=== PATIENT | female | born 1995 | race Caucasian/White ===

== ENCOUNTER → 2019-06-07 | Outpatient (CLI) | payer OTHER ==
--- NOTE | 2019-06-07 17:46 | RAD ---
Study: PREG MORE THAN OR EQ TO 14 WKS Clinical Indication: Amniotic fluid index, estimated weight and anatomy evaluation. Size less than dates. Comparison: None. Technique: Multiple grayscale images, color Doppler, and M-mode images of the uterus are obtained. Findings: There is a single intrauterine gestation in cephalic presentation. The placenta is posterior in location without evidence of placenta previa. The amount of amniotic fluid appears appropriate. Amniotic fluid index is 15 cm. Cervical length is 4.3 cm. Biometrical data: BPD = 4.97 cm for 21 weeks 0 days. HC = 18.13 cm for 20 weeks 4 days. AC = 16.17 cm for 21 weeks 2 days. FL = 3.47 cm for 21 weeks 0 days. CI ratio = 81.8. HC/AC ratio = 1.12. FL/HC ratio = 19.1. FL/AC ratio = 21.5. Overall, the estimated sonographic gestational age is 21 weeks 0 days. The estimated gestational age by the last menstrual period is 20 weeks 0 days. Estimated weight is 396 grams. A 4 chamber heart is identified with positive cardiac activity. The estimated heart rate is 145 beats per minute. Bilateral upper and lower extremities are identified. There is a three-vessel cord with cord insertion visualized. stomach and urinary bladder are identified. Both kidneys are seen. The spine and brain are unremarkable. No gross anatomic abnormalities are identified. Impression: 1. Single live intrauterine gestation with an estimated sonographic age of 21 weeks 0 days compared to that by last menstrual period of 20 weeks 0 days. Estimated weight at 396 g. Amniotic fluid index is within normal limits. The cervix is closed and normal in length at 4.3 cm. 2. Cephalic presentation. Posterior placenta without previa. 3. No gross anatomic abnormality is identified noting that the nose and lips are not well evaluated due to positioning. Electronically signed by: LAWRENCE BALL MD (06/07/2019 5:43 PM) [facility]
== END | disposition home or self-care (01) ==
LOC: US 13:35
PROVIDERS: ATTEND Obstetrics & Gynecology
DX: O26.842 Uterine size-date discrepancy, second trimester (principal); Z3A.21 21 weeks gestation of pregnancy
CPT/HCPCS: 76805

== ENCOUNTER 2019-10-22 01:13 | Inpatient (IN) | payer OTHER ==
[~2019-10-22] VITALS: Ht 167.6 cm; Wt 65.3 kg
[2019-10-22] MEDS ORDERED: ACETAMINOPHEN 325 MG TABLET. PO PRN ×3 (01:30→12:45)
[2019-10-22] MEDS ORDERED: MAG HYDROX/ALUMINUM HYD/SIMETH 30 ML ORAL.SUSP PO PRN ×2 (01:30→12:45)
[2019-10-22] MEDS ORDERED: IV RINGERS,LACTATED 1000ML 1,000 ML IV PRN (01:30)
[2019-10-22 01:40] LABS: BILIRUBIN,URINE NEGATIVE (NEG); CLARITY,URINE CLEAR; COLOR,URINE YELLOW; NITRITE,URINE NEGATIVE (NEG); PROTEIN,URINE NEGATIVE (NEG-TRACE); UROBILINOGEN,URINE 0.2 mg/dL (0.2 mg/dL)
[2019-10-22 01:44] LABS: BACTERIA,URINE FEW /HPF (0-FEW); SQUAMOUS EPITHELIAL CELL,UR MOD /LPF
[2019-10-22 01:45] LABS: BARBITURATES NEG (NEG); BENZODIAZEPINES NEG (NEG); CANNABINOIDS NEG (NEG); COCAINE NEG (NEG); METHADONE NEG (NEG); OPIATES NEG (NEG); PHENCYCLIDINE NEG (NEG)
[2019-10-22 01:47] LABS: AMPHETAMINE/METHAMPHETAMINE NEG (NEG)
[2019-10-22] MEDS ORDERED: IV RINGERS,LACTATED 1000ML 1,000 ML IV SCH ×2 (03:51→05:47)
[2019-10-22] MEDS ORDERED: OXYTOCIN 30 UNIT/500 ML PREMIX 500 ML IV PRN ×3 (04:00→12:45)
[2019-10-22] MEDS ORDERED: TERBUTALINE 1 MG/ML VIAL. SQ PRN (04:00)
[2019-10-22] MEDS ORDERED: BUTORPHANOL 2 MG/ML VIAL. IVP PRN (04:00)
[2019-10-22] MEDS ORDERED: 0.9 % SODIUM CHLORIDE 10 ML DISP.SYRIN. IV PRN ×2 (04:00→12:45)
[2019-10-22] MEDS ORDERED: PENICILLIN G K 5,000,000 UNIT in IV DEXTROSE 5% 100ML 100 ML IV ONE (04:00)
[2019-10-22] MEDS ORDERED: LIDOCAINE 1% PF 30 ML VIAL. INJ PRN (04:00)
[2019-10-22] MEDS ORDERED: fentaNYL PF VIAL 100 MCG/2 ML VIAL IVP PRN ×3 (04:00)
[2019-10-22 04:17] LABS: BASO % 0 % (0-3); EOS % 0 % (0-3); HEMATOCRIT 31.4 % (36.0-47.0); HEMOGLOBIN 10.1 g/dL (12.0-15.5); LYMPH # 1.3 x10^3/uL (1.0-4.8); LYMPH % 9 % (24-48); MEAN CORPUSCULAR HEMOGLOBIN 25 pg (25-35); MEAN CORPUSCULAR HGB CONC 32 g/dL (31-37); MEAN CORPUSCULAR VOLUME 79 fL (79-100); MONO # 0.8 x10^3/uL (0.0-1.1); MONO % 6 % (0-9); NEUT # 12.7 x10^3/uL (1.8-7.7); NEUT % 85 % (31-73); PLATELET COUNT 259 x10^3/uL (140-400); RED BLOOD COUNT 3.99 x10^6/uL (3.50-5.40); RED CELL DISTRIBUTION WIDTH 15.8 % (11.5-14.5); WHITE BLOOD COUNT 14.8 x10^3/uL (4.0-11.0)
[2019-10-22] MEDS: ONDANSETRON PF 4 MG/2 ML VIAL. IVP PRN ×2 (04:18→10:49)
[2019-10-22 04:42] LABS: % BANDS 2 % (0-9); % LYMPHS 9 % (24-48); % MONOS 6 % (0-10); % SEGS 83 % (35-66); ANISOCYTOSIS SLIGHT; HYPOCHROMIA SLIGHT; PLT ESTIMATE ADEQUATE (ADEQUATE); TOXIC GRANULATION SLIGHT
[2019-10-22 05:33] VITALS: BP 119/80
[2019-10-22] MEDS ORDERED: BUPIVACAINE MPF 0.25% 30 ML VIAL. EPID PRN (06:00)
[2019-10-22] MEDS ORDERED: ePHEDrine PF IN SALINE 50 MG/10 ML SYRINGE. IV PRN (06:00)
[2019-10-22] MEDS ORDERED: IV RINGERS,LACTATED 500ML 500 ML IV PRN (06:00)
[2019-10-22] MEDS ORDERED: PHENYLEPHRINE in 0.9% NACL PF 1 MG/10 ML SYRINGE. IV PRN (06:00)
[2019-10-22] MEDS ORDERED: ROPIVacaine 0.2% PF 10 ML VIAL. EPID PRN (06:00)
[2019-10-22] MEDS ORDERED: fentaNYL PF VIAL 100 MCG/2 ML VIAL EPID PRN (06:00)
[2019-10-22] MEDS ORDERED: NALOXONE 0.4 MG/ML VIAL. IV PRN (06:00)
[2019-10-22] MEDS ORDERED: PROCHLORPERAZINE 10 MG/2 ML VIAL. IV PRN (06:00)
[2019-10-22] MEDS ORDERED: ONDANSETRON PF 4 MG/2 ML VIAL. IVP PRN (06:00)
[2019-10-22] MEDS ORDERED: diphenhydrAMINE 50 MG/ML VIAL IV PRN (06:00)
[2019-10-22] MEDS ORDERED: ATROPINE 0.5 MG/5 ML DISP.SYRINGE. IV PRN (06:00)
[2019-10-22] MEDS: L&D EPIDURAL SYRINGE 50 ML EPID PRN ×2 (06:25→09:48)
[2019-10-22] MEDS ORDERED: PENICILLIN G K 2,500,000 UNIT in IV DEXTROSE 5% 50 ML IV SCH (08:00)
[2019-10-22] MEDS ORDERED: diphenhydrAMINE HCL 25 MG CAPSULE PO PRN (12:45)
[2019-10-22] MEDS ORDERED: MAGNESIUM HYDROXIDE 2,400 MG/30 ML ORAL.SUSP. PO PRN (12:45)
[2019-10-22] MEDS ORDERED: DOCUSATE SODIUM 100 MG CAPSULE. PO PRN (12:45)
[2019-10-22] MEDS ORDERED: SIMETHICONE 80 MG TAB.CHEW PO PRN (12:45)
[2019-10-22] MEDS ORDERED: ZOLPIDEM 5 MG TABLET. PO PRN (12:45)
[2019-10-22] MEDS ORDERED: PHENYLEPH/MINERAL OIL/PETROLAT RECTAL OINTMENT TUBE. RC PRN (12:45)
[2019-10-22] MEDS ORDERED: IBUPROFEN 400 MG TABLET. PO PRN (12:45)
[2019-10-22] MEDS ORDERED: HYDROCORTISONE 1% TOPICAL OINTMENT 30GM TUBE. TP PRN (12:45)
[2019-10-22] MEDS ORDERED: TDaP (Adacel) per PROTOCOL. MC PRN (12:45)
[2019-10-22] MEDS ORDERED: BENZOCAINE 20% TOPICAL AEROSOL SPRAY 57GM CAN. TP PRN (12:45)
[2019-10-22] MEDS ORDERED: MMR per PROTOCOL. MC PRN (12:45)
--- NOTE | 2019-10-22 12:58 | PDOC1 ---
OB - History Hx of Present Care: Good Care Ultrasounds: Normal mid trimester US Obstetrical Complications: None Medical Complications: None Past Family/Social History * Past Medical, Surgical, Family and Obstetric Histories reviewed from chart. Rubella: Immune RPR/VDRL: Negative GBS Status: Negative HBsAG: Negative OB - Chief Complaint & HPI Date of Admission: Date of Admission: Oct 22, 2019 at 01:13 Chief Complaint/History : 1 Para: 1 EGA: 39 Reason for admission: active labor Admission Nurse Assessment Rev: Yes OB - Admission Exam Physical Exam Vitals: VS - Last 72 Hours, by Label Date Time Temp Pulse Resp B/P (MAP) Pulse Ox O2 Delivery O2 Flow Rate FiO2 10/22/19 09:48 16 100 10/22/19 06:25 18 Room Air 10/22/19 05:33 97.8 72 20 119/80 (93) 100 Room Air 97.8 10/22/19 04:18 20 Room Air HEENT: Normal Heart: Regular Rate Lungs: Clear Abdomen: Gravid, Non tender, Soft Extremities: Edema Reflexes: Normal Cervical Dilatation: 4cm Effacement: 75% Station: -2 Membranes: Intact Heart Rate: Normal Accelerations: Accelerations Present Decelerations: No decelerations Contractions on Admission: < 5 Minutes Apart Intensity: Moderate Text A: 39 wks IUP Active labor P: Admit labor management. MARTIN RANGEL Jr, MD Oct 22, 2019 12:57
--- NOTE | 2019-10-22 12:59 | PDOC ---
VAGINAL DELIVERY DATE DATE: 10/22/19 TIME: 12:58 : 1 Para: 1 EGA: 39 VAGINAL DELIVERY: VTX VACCUM ASSISTED: No PLACENTA: Spontaneous 8/9 SEX: Female WEIGHT Weight [3750 gm ] Nuchal Cord: No Amniotic Fluid: Clear PAIN: Epidural EPISIOTOMY: Yes (2nd degree midline episiotomy) EXTENSION: Yes (Right vaginal sidewall laceration) REPAIRED WITH 2-0 vicryl EBL 300 ml COMPLICATIONS none CONDITION pt. stable Signs of Intrauterine Infectio: None Shoulder Dystocia: No MARTIN RANGEL Jr, MD Oct 22, 2019 12:59
[2019-10-22] MEDS: IBUPROFEN 400 MG TABLET. PO PRN ×2 (14:28→22:27)
[2019-10-22 17:00] VITALS: BP_SYST 65
[2019-10-22 18:00] VITALS: BP 111/74
[2019-10-22 21:55] VITALS: BP 104/58
[2019-10-22] MEDS: oxyCODONE/APAP 5/325 1 TAB TABLET PO PRN (22:28)
[2019-10-23 01:39] VITALS: BP 95/53
[2019-10-23] MEDS: oxyCODONE/APAP 5/325 1 TAB TABLET PO PRN (04:56)
[2019-10-23 05:08] VITALS: BP 94/55
[2019-10-23] MEDS ORDERED: FERROUS SULFATE 325 MG TABLET. PO SCH (08:00)
[2019-10-23 08:15] LABS: BASO % 0 % (0-3); EOS # 0.1 x10^3/uL (0.0-0.7); EOS % 0 % (0-3); HEMATOCRIT 28.1 % (36.0-47.0); HEMOGLOBIN 8.9 g/dL (12.0-15.5); LYMPH # 2.1 x10^3/uL (1.0-4.8); LYMPH % 13 % (24-48); MEAN CORPUSCULAR HEMOGLOBIN 25 pg (25-35); MEAN CORPUSCULAR HGB CONC 32 g/dL (31-37); MEAN CORPUSCULAR VOLUME 80 fL (79-100); MONO # 1.1 x10^3/uL (0.0-1.1); MONO % 7 % (0-9); NEUT # 12.9 x10^3/uL (1.8-7.7); NEUT % 80 % (31-73); PLATELET COUNT 216 x10^3/uL (140-400); RED BLOOD COUNT 3.53 x10^6/uL (3.50-5.40); RED CELL DISTRIBUTION WIDTH 15.3 % (11.5-14.5); WHITE BLOOD COUNT 16.1 x10^3/uL (4.0-11.0)
[2019-10-23] MEDS ORDERED: MULTIVITAMIN with MINERAL TABLET. PO SCH (09:00)
[2019-10-23] MEDS: IBUPROFEN 400 MG TABLET. PO PRN (09:58)
[2019-10-23 11:20] VITALS: BP 99/63
--- NOTE | 2019-10-23 11:44 | PDOC3 ---
OB DISCHARGE SUMMARY DATE OF ADMISSION: 10/22/19 DATE OF DISCHARGE: 10/23/19 REASON FOR ADMISSION: Onset of labor INTRAPARTUM PROCEDURES: Spontanous Vag Deliv DISCHARGE DIAGNOSIS: Term Delivered DISCHARGE INFORMATION: Activity (ad maikel), Diet (regular), Instructions (pelvic rest x 6 wks) HOSPITAL COURSE Term gestation delivered vaginally without complications. MARTIN RANGEL Jr, MD Oct 23, 2019 11:43
[2019-10-23] MEDS ORDERED: IBUP-1027 PO (11:46)
--- NOTE | 2019-10-23 11:46 | DISCH ---
DISCHARGE INSTRUCTIONS Condition on Discharge Condition on Discharge: Stable Activity After Discharge Activity Instructions for Disc: Activity as tolerated Lifting Instructions after Dis: No heavy lifting Driving Instructions after Dis: Do not drive today Diet after Discharge Diet after Discharge: Regular Contacting the DRArnol after DC Call your doctor for: Concerns you may have Follow-Up Follow up with: Dr. Herrera in 6 wks MARTIN HERRERA Jr, MD Oct 23, 2019 11:46
[2019-10-23 14:30] VITALS: BP 111/69
== END 2019-10-23 16:01 | disposition home or self-care (01) | DRG 807 ==
LOC: 3 SO LND 01:13 → OBSVTOIN 01:13 → 3 SO LND 17:30
PROVIDERS: ADMIT Obstetrics & Gynecology; ATTEND Obstetrics & Gynecology
PROC: 10E0XZZ Delivery of Products of Conception, External Approach (ICD-10-PCS; principal; 2019-10-22)
PROC: 3E0R3BZ Introduction of Anesthetic Agent into Spinal Canal, Percutaneous Approach (ICD-10-PCS; 2019-10-22)
PROC: 00HU33Z Insertion of Infusion Device into Spinal Canal, Percutaneous Approach (ICD-10-PCS; 2019-10-22)
PROC: 0W8NXZZ Division of Female Perineum, External Approach (ICD-10-PCS; 2019-10-22)
PROC: 0UQGXZZ Repair Vagina, External Approach (ICD-10-PCS; 2019-10-22)
DX: O71.4 Obstetric high vaginal laceration alone (principal); Z37.0 Single live birth; Z3A.39 39 weeks gestation of pregnancy
CPT/HCPCS: 36415; 80307; 81001; 85007; 85025; 86592; 86850; 86900; 86901; 87086; 87340; J0595; J2405; J2540; J2590; J3010; J3490; J7060; J7120; G0378